=== PATIENT | male | born 1955 ===

== ENCOUNTER 2021-05-01 18:41 | Outpatient (CLI) | payer MEDICARE, SELFPAY ==
[2021-05-01 14:11] LABS: CREATININE 1.1 mg/dL (0.70-1.30)
== END 2021-05-01 18:42 | disposition home or self-care (01) ==
LOC: LBO 18:42
PROVIDERS: PCP Preventive Medicine Undersea and Hyperbaric Medicine; Visit Provider Preventive Medicine Undersea and Hyperbaric Medicine
DX: C32.0 Malignant neoplasm of glottis (principal)
CPT/HCPCS: 36415; 82565